=== PATIENT | male | born 1965 ===

== ENCOUNTER 2017-06-19 12:34 | Inpatient (IN) | payer OTHER ==
[~2017-06-19] VITALS: Ht 180.3 cm; Wt 90.7 kg
--- NOTE | 2017-06-19 13:22 | NUR ---
PRE ASSESSMENT Pt received in intake office. Pt states came from home. Pt alert and oriented to name, place, and time. Perrla. Skin warm and dry to touch. Respirations even unlabored. No hand tremors noted. Pt made aware of rules on the unit. VS wnl. Pt denies any allergies. No distress noted at this time.
[2017-06-19] MEDS ORDERED: MAG HYDROX/AL HYDROX/SIMETH 30 ML LIQUID UDC PO PRN (14:00)
[2017-06-19] MEDS ORDERED: CLONIDINE HCL 0.1 MG TABLET PO PRN (14:00)
[2017-06-19] MEDS ORDERED: LORAZEPAM 1 MG TABLET PO PRN ×2 (14:00)
[2017-06-19] MEDS ORDERED: ACETAMINOPHEN 325 MG TABLET PO PRN (14:00)
[2017-06-19] MEDS ORDERED: ONDANSETRON 4 MG/2 ML VIAL IM PRN (14:00)
[2017-06-19] MEDS ORDERED: LORAZEPAM 2 MG/1 ML VIAL IM PRN (14:00)
[2017-06-19] MEDS ORDERED: MIRALAX 17 GM POWD.PACK PO PRN (14:00)
[2017-06-19] MEDS ORDERED: HYDROXYZINE PAMOATE 25 MG CAPSULE PO PRN (14:00)
[2017-06-19] MEDS ORDERED: LOPERAMIDE HCL 2 MG CAPSULE PO PRN ×2 (14:00)
[2017-06-19] MEDS ORDERED: MAGNESIUM HYDROXIDE 30 ML LIQUID UDC PO PRN (14:00)
[2017-06-19] MEDS ORDERED: ONDANSETRON ODT 4 MG TAB.RAPDIS SL PRN (14:00)
[2017-06-19] MEDS ORDERED: DICYCLOMINE HCL 20 MG TABLET PO PRN (14:00)
[2017-06-19] MEDS ORDERED: IBUPROFEN 600 MG TABLET PO PRN (14:00)
--- NOTE | 2017-06-19 14:00 | NUR ---
ADMISSION Pt received in intake office. Pt states came from home. Pt states he is trying to stop drinking because it is taking control of his life. Pt admitted for etoh dependence. Pt alert and oriented to name, place, and time. Perrla. Skin warm and dry to touch. Respirations even unlabored. No hand tremors noted. Pt states feels anxious. VS wnl. Pt denies any allergies. Pt was seen by MD. Pt denies any seizure history. Pt states NKA. Oriented pt to unit and room. No distress noted at this time. substance hx - wine po 2 regular size bottles or 1 big bottle daily x2 weeks. total=35 years. Last use 06/17/17 and had 2 regular bottles - vodka po . Stated uses occasionally. Last drink was on 03/30/17 1 pint -beer po. Stated uses occasionally. Last drink was 06/18/17 and had 2 cans. medical hx pt denies any medical history tx hx adelante 10/2016 [facility] = does not remember the dates [facility] = does not remember the dates.
[2017-06-19] MEDS ORDERED: ESCI20TA PO (14:09)
[2017-06-19] MEDS ORDERED: THIAMINE HCL 200 MG/2 ML VIAL IM ONE (15:07)
[2017-06-19] MEDS: GABAPENTIN 300 MG CAPSULE PO SCH (15:13)
[2017-06-19 16:00] LABS: *AMPHETAMINE, URINE NEGATIVE (NEGATIVE); *BARBITURATE, URINE NEGATIVE (NEGATIVE); *CANNABINOID, URINE NEGATIVE (NEGATIVE); *COCCAINE, URINE NEGATIVE (NEGATIVE); *OPIATE, URINE NEGATIVE (NEGATIVE); *PHENCYCLIDINE SCREEN,URINE NEGATIVE (NEGATIVE)
--- NOTE | 2017-06-19 17:02 | NUR ---
PRN Pt with bp 161/101. Catapres po prn per MD order given and tolerated well.
[2017-06-19 17:47] LABS: BASOPHILS % (AUTO) 0.4 % (0.0-2.0); EOSINOPHILS # (AUTO) 0.1 K/uL (0.0-0.7); HEMATOCRIT 43.8 % (40-50); HEMOGLOBIN 14.8 G/DL (14.0-18.0); LYMPHOCYTES # (AUTO) 1.7 K/UL (0.8-4.8); LYMPHOCYTES % (AUTO) 20.9 % (20.5-51.5); MEAN CORPUSCULAR HEMOGLOBIN 32.3 UUG (27.0-31.0); MEAN CORPUSCULAR HGB CONC 34 g/dL (32.0-37.0); MEAN CORPUSCULAR VOLUME 95.7 FL (82.0-92.0); MONOCYTES # (AUTO) 0.9 K/UL (0.1-1.30); NEUTROPHILS # (AUTO) 5.2 K/UL (1.8-8.9); NEUTROPHILS % (AUTO) 65.7 % (38.5-71.5); PLATELET COUNT (AUTO) 232 K/UL (150-450); RED BLOOD CELL COUNT(AUTO) 4.58 MIL/UL (4.7-6.1); WHITE BLOOD COUNT (AUTO) 7.9 K/UL (4.0-11.2)
[2017-06-19 17:57] LABS: ETHANOL < 3 MG/DL (0-0)
--- NOTE | 2017-06-19 18:02 | NUR ---
PRN EVAL ND=046/[id number].
[2017-06-19 18:11] LABS: ALANINE AMINOTRANSFERASE 44 U/L (16-63); ALKALINE PHOSPHATASE 61 U/L (50-136); AMYLASE 53 U/L (25-115); ASPARTATE AMINOTRANSFERASE 31 U/L (15-37); BILIRUBIN,TOTAL 0.6 mg/dL (0.2-1.0); CARBON DIOXIDE 30 mmol/L (21-32); CHLORIDE 99 mmol/L (98-107); CREATININE 1.2 mg/dL (0.6-1.3); GLUCOSE 111 mg/dL (74-106); LIPASE 124 U/L (73-393); MAGNESIUM 1.7 mg/dL (1.8-2.4); POTASSIUM 3.7 mmol/L (3.5-5.1); TOTAL PROTEIN, SERUM 7.7 g/dL (6.4-8.2); UREA NITROGEN, BLOOD 18 mg/dL (7-18)
--- NOTE | 2017-06-19 18:31 | NUR ---
END OF SHIFT Pt 51 y/o male admitted for etoh dependence. Pt alert and oriented to name, place, and time. Perrla. Skin warm and dry to touch. Respirations even and unlabored. Bilateral hand tremors noted slightly. Pt observed mostly isolative to room throughout the day. Pt was seen by MD today. pt medication compliant and tolerated well. No ASE noted. Bed on lowest position with side rails x2 up for safety. Call light within reach. No distress noted at this time.
--- NOTE | 2017-06-19 19:30 | NUR ---
Start of Shift Note: Endorsement received from AM nurse. Pt 51 y/o male admitted for Etoh dependence. Pt alert and oriented x 4. Perrla. Skin warm and dry to touch. Respirations even and unlabored. Patient in room resting with no physical or emotional complaints noted. Patient with mild anxiety but no other noted withdrawal symptoms art present time. Last CIWA 4. Patient to start on five day Ativan taper on 06-20-17. Bed on lowest position with side rails x2 up for safety.Patient denies seizure history or past medical history. Call light within reach. No distress noted at this time.
[2017-06-19 20:36] VITALS: BP 131/83
[2017-06-19] MEDS ORDERED: GABAPENTIN 300 MG CAPSULE PO SCH (21:00)
[2017-06-19] MEDS: diphenhydrAMINE 50 MG CAPSULE PO PRN (21:58)
--- NOTE | 2017-06-19 21:58 | NUR ---
PRN medication Patient with complaints of insomnia requested and given Benadryl 50 mg PO at 2158. Effect pending.
--- NOTE | 2017-06-19 23:00 | NUR ---
Reassessment of patient one hour after Benadryl 50 mg PO administered for insomnia with good effect noted. Patient with eyes closed resting comfortably in bed.
[2017-06-20] VITALS: BP 139/89
--- NOTE | 2017-06-20 04:08 | NUR ---
VItal SIgns refused/CIWA deferred Patient refused 0400 Vital signs stating he "really needs to sleep" CIWA deferred due to sleep. Respirations 16, breathing even and unlabored.
--- NOTE | 2017-06-20 06:57 | NUR ---
End of shift report: Patient is a 51 year old male admitted on 06-19-17 for alcohol detox. He will be started on a 5 day Ativan taper this AM. He is a full code, on a regular diet, and is on both fall and seizure precautions. (No past seizure history noted) Patients VS at 2000: BP 131/83, P 76, SPO2 96% R 18. CIWA 2. VS at 0000: BP 139/89, P 65, SPO2 97% on RA, R 16, CIWA 2. Patient refused 0400 Vital signs stating he "really needs to sleep" CIWA deferred due to sleep. Respirations 16, breathing even and unlabored. Benadryl was given at 2158 for insomnia with good effect. Safety measures in place. Patient with moderate anxiety. No noted tremors. Intake 855 ml output 3 voids. Slept total of 7 hours. Endorsement to AM shift.
--- NOTE | 2017-06-20 07:49 | NUR ---
START OF SHIFT Pt 51 y/o male admitted for etoh dependence. Pt received in room on bed with eyes closed resting, but easily arousable to name. Pt alert and oriented to name, place, and time. Perrla. Skin warm and dry to touch. Respirations even and unlabored. It was reported that pt slept 8 hours last night. Bed on lowest position with side rails x2 up for safety. Call light within reach. No distress noted at this time.
[2017-06-20 08:41] VITALS: BP 132/87
[2017-06-20] MEDS: LORAZEPAM 1 MG TABLET PO SCH ×4 (08:43→21:00)
[2017-06-20] MEDS: MULTIVITAMINS,THERAPEUTIC TABLET PO SCH (08:44)
[2017-06-20] MEDS: THIAMINE HCL 100 MG TABLET PO SCH (08:44)
[2017-06-20] MEDS: GABAPENTIN 300 MG CAPSULE PO SCH ×3 (08:44→21:00)
[2017-06-20] MEDS: FOLIC ACID 1 MG TABLET PO SCH (08:45)
[2017-06-20] MEDS ORDERED: TUBERCULIN,PURIF.PROT.DERIV. 5 TU/0.1 ML TEST ID ONE (09:00)
[2017-06-20] MEDS: DOCUSATE SODIUM 250 MG CAPSULE PO SCH (09:00)
[2017-06-20] MEDS ORDERED: 5 DAY TAPER OF LORAZEPAM -SERENITY PROTOCOL PO PRN (09:00)
[2017-06-20] MEDS ORDERED: Medication Not On Formulary EA (Escitalopram Oxalate (Lexapro) 20 MG) PO SCH (11:45)
[2017-06-20] MEDS: ESCITALOPRAM OXALATE 10 MG TABLET PO SCH (12:12)
[2017-06-20 13:00] VITALS: BP 121/81
[2017-06-20 16:00] VITALS: BP 150/87
[2017-06-20] MEDS ORDERED: MAGNESIUM OXIDE 400 MG TABLET PO ONE (17:00)
[2017-06-20 17:53] VITALS: BP 126/92
--- NOTE | 2017-06-20 18:38 | NUR ---
END OF SHIFT Pt 51 y/o male admitted for etoh dependence. Pt alert and oriented to name, place, and time. Perrla. Skin warm and dry to touch. Respirations even and unlabored. Bilateral hand tremors noted slightly. Pt observed mostly isolative to room throughout the day. Pt did not attend group activity. Pt was seen by MD today. Pt medication compliant and tolerated well. No ASE noted. Bed on lowest position with side rails x2 up for safety. Call light within reach. No distress noted at this time.
--- NOTE | 2017-06-20 19:40 | NUR ---
START OF SHIFT Received report from day shift nurse. Pt is lying in bed resting with eyes closed and is easily arousable. He is a 51 yo male admitted to [facility] on 06/19 for ETOH dependence. He is A&O and ambulatory. NKA, full code status and on a regular diet. He denies having any PMH. On admission he admitted to drinking wine 1500mL per day for two weeks. Pt started a 5 day Ativan taper today. He has moist skin. Ativan taper is working well to manage withdrawal symptoms. Fall and seizure precautions ordered. Bed is down with call light in reach.
[2017-06-20 20:00] VITALS: BP 119/77
--- NOTE | 2017-06-20 21:59 | NUR ---
2100 Medications held due to sleep Ativan taper and Gabapentin held at 2100 due to sleep.
[2017-06-21] VITALS: BP 125/81
[2017-06-21 04:00] VITALS: BP 123/80
--- NOTE | 2017-06-21 04:00 | NUR ---
0400 CIWA deferred CIWA ordered Q4HWA. Pt is lying in bed resting with eyes closed. Respirations even and unlabored. Safety measures in place.
[2017-06-21 06:08] LABS: HEPATITIS B SURFACE AG Negative (Negative)
--- NOTE | 2017-06-21 07:20 | NUR ---
END OF SHIFT Received report from day shift nurse. Pt is lying in bed resting. He is a 51 yo male admitted to [facility] on 06/19 for ETOH dependence. He is A&O and ambulatory. NKA, full code status and on a regular diet. He denies having any PMH. On admission he admitted to drinking wine 1500mL per day for two weeks. Pt started a 5 day Ativan taper on 06/20 which is working well to manage symptoms. Last CIWA was 2. He slept throughout the shift for a total of 11 hours. 2100 medications including Ativan taper held due to sleep. Fall and seizure precautions ordered. Bed is down with call light in reach.
--- NOTE | 2017-06-21 07:42 | NUR ---
START OF SHIFT Pt 51 y/o male admitted for etoh dependence. Pt received in room on bed with eyes closed resting, but easily arousable to name. Pt alert and oriented to name, place, and time. Perrla. Skin warm and dry to touch. Respirations even and unlabored. It was reported that pt slept 11 hours last night. Bed on lowest position with side rails x2 up for safety. Call light within reach. No distress noted at this time.
[2017-06-21 08:00] VITALS: BP 124/88
[2017-06-21] MEDS: FOLIC ACID 1 MG TABLET PO SCH (08:50)
[2017-06-21] MEDS: MULTIVITAMINS,THERAPEUTIC TABLET PO SCH (08:51)
[2017-06-21] MEDS: GABAPENTIN 300 MG CAPSULE PO SCH ×3 (08:51→20:57)
[2017-06-21] MEDS: THIAMINE HCL 100 MG TABLET PO SCH (08:51)
[2017-06-21] MEDS: ESCITALOPRAM OXALATE 10 MG TABLET PO SCH (08:57)
[2017-06-21] MEDS: LORAZEPAM 1 MG TABLET PO SCH ×3 (08:57→20:57)
[2017-06-21] MEDS: DOCUSATE SODIUM 250 MG CAPSULE PO SCH (09:00)
--- NOTE | 2017-06-21 09:05 | NUR ---
PRN Pt with c/o joint pain 05/05. Motrin po prn per MD order given and tolerated well.
[2017-06-21 09:34] LABS: CREATININE 1.1 mg/dL (0.6-1.3); MAGNESIUM 1.9 mg/dL (1.8-2.4); POTASSIUM 4.6 mmol/L (3.5-5.1)
--- NOTE | 2017-06-21 10:05 | NUR ---
SIMONE CRAVEN Pt observed on bed in room with eyes closed resting, but easily arousable to name. No distress noted at this time.
--- NOTE | 2017-06-21 10:58 | NUR ---
Therapist prompted client about group times. Client stated he would try to attend groups today.
[2017-06-21 12:32] VITALS: BP 138/88
[2017-06-21 17:35] VITALS: BP 136/87
--- NOTE | 2017-06-21 19:55 | NUR ---
START OF SHIFT Received report from day shift nurse. Pt is lying in bed resting and is easily arousable. He is a 51 yo male admitted to [facility] on 06/19 for ETOH dependence. He is A&O and ambulatory. NKA, full code status and on a regular diet. He denies having any PMH. On admission he admitted to drinking wine 1500mL per day for two weeks. Pt started a 5 day Ativan taper on 06/20. His skin is moist. Ativan taper continues to work well to manage withdrawal symptoms. He states he is glad to be getting rest. Fall and seizure precautions ordered. Bed is down with call light in reach.
[2017-06-21 20:00] VITALS: BP 134/84
[2017-06-22] VITALS: BP 124/86
[2017-06-22] MEDS: diphenhydrAMINE 50 MG CAPSULE PO PRN ×2 (00:25→21:54)
--- NOTE | 2017-06-22 00:26 | NUR ---
PRN Benadryl Pt c/o restlessness and inability to sleep. PRN Benadryl administered.
--- NOTE | 2017-06-22 01:36 | NUR ---
PRN Benadryl reassessment PRN Benadryl effective. Pt is lying in bed resting with eyes closed. Respirations even and unlabored. Safety measures in place.
--- NOTE | 2017-06-22 04:00 | NUR ---
0400 Vitals refused/CIWA deferred Pt refused to be woken for 0400 vitals. He is lying in bed resting with eyes closed. Respirations even and unlabored. CIWA ordered Q4HWA. Safety measures in place.
--- NOTE | 2017-06-22 07:05 | NUR ---
END OF SHIFT Report provided to day shift nurse. Pt is lying in bed resting. He is a 51 yo male admitted to [facility] on 06/19 for ETOH dependence. He is A&O and ambulatory. NKA, full code status and on a regular diet. He denies having any PMH. On admission he admitted to drinking wine 1500mL per day for two weeks. Pt started a 5 day Ativan taper on 06/20. He is compliant with treatment. Pt was having difficulty sleeping. PRN Benadryl administered. Last CIWA was 3. He drank 750mL and slept for 7 hours. Fall and seizure precautions ordered. Bed is down with call light in reach.
[2017-06-22 08:00] VITALS: BP 136/96
--- NOTE | 2017-06-22 08:00 | NUR ---
START OF SHIFT NOTE Received report from night nurse, 51 year old male admitted to [facility] for ETOH dependence. Pt denies having any PMH. Pt reported drinking wine 1500mL per day for two weeks. Pt cont on 5 day Ativan taper. Per endorsement pt was given PRN medication effective per night nurse, Last CIWA was 3, slept for 7 hours. Patient received in room, alert and oriented x4, educated regarding plan of care for the day and medication regimen with good verbal understanding. Will continue to monitor.
[2017-06-22] MEDS: MULTIVITAMINS,THERAPEUTIC TABLET PO SCH (08:43)
[2017-06-22] MEDS: GABAPENTIN 300 MG CAPSULE PO SCH ×3 (08:43→21:00)
[2017-06-22] MEDS: DOCUSATE SODIUM 250 MG CAPSULE PO SCH (08:43)
[2017-06-22] MEDS: THIAMINE HCL 100 MG TABLET PO SCH (08:43)
[2017-06-22] MEDS: ESCITALOPRAM OXALATE 10 MG TABLET PO SCH (08:43)
[2017-06-22] MEDS: LORAZEPAM 1 MG TABLET PO SCH ×4 (08:43→21:00)
[2017-06-22] MEDS: FOLIC ACID 1 MG TABLET PO SCH (08:43)
[2017-06-22 12:00] VITALS: BP 128/90
[2017-06-22 16:00] VITALS: BP 141/97
--- NOTE | 2017-06-22 19:13 | NUR ---
END OF SHIFT NOTE Pt cont with 5 day Ativan taper tolerating well. No PRN was given during day shift. Pt rested most of the day in his room. Pt did not attend any groups or activities. Encouraged Po fluids as tolerated. Pt remained compliant with plan of care. All safety measures in place, Call light within reach. P endorsed to night nurse in stable condition.
--- NOTE | 2017-06-22 19:45 | NUR ---
START OF SHIFT Received report from day shift nurse. Pt is lying in bed watching TV. He is a 51 yo male admitted to [facility] on 06/19 for ETOH dependence. He is A&O and ambulatory. NKA, full code status and on a regular diet. He denies having any PMH. On admission he admitted to drinking wine 1500mL per day for two weeks. Pt started a 5 day Ativan taper on 06/20. He is observed with flushed face and skin feels moist. Fall and seizure precautions ordered. Bed is down with call light in reach.
[2017-06-22 20:00] VITALS: BP 142/87
[2017-06-22 21:52] VITALS: BP 133/84
--- NOTE | 2017-06-22 21:55 | NUR ---
PRN Benadryl Pt c/o inability to sleep. PRN Benadryl administered.
--- NOTE | 2017-06-22 22:55 | NUR ---
PRN Benadryl reassessment PRN Benadryl effective. Pt is lying in bed resting with eyes closed. Respirations even and unlabored. Safety measures in place.
--- NOTE | 2017-06-23 | NUR ---
0000 Vitals refused/CIWA deferred Pt refused to be woken for 0000 vitals. He is lying in bed resting with eyes closed. Respirations even and unlabored. CIWA ordered Q4HWA. Safety measures in place.
--- NOTE | 2017-06-23 07:16 | NUR ---
END OF SHIFT Report provided to day shift nurse. Pt is lying in bed resting. He is a 51 yo male admitted to [facility] on 06/19 for ETOH dependence. He is A&O and ambulatory. NKA, full code status and on a regular diet. He denies having any PMH. Upon admission he reported drinking wine 1500mL per day for two weeks. 5 day Ativan taper was started on 06/20. PRN Benadryl administered. Last CIWA was 2. He drank 855mL and slept for 7 hours. Fall and seizure precautions ordered. Bed is down with call light in reach.
--- NOTE | 2017-06-23 07:52 | NUR ---
START OF SHIFT NOTE Received report from night nurse, 51 year old male admitted to [facility] for ETOH dependence. Pt denies having any PMH. Pt reported drinking wine 1500mL per day for two weeks. Pt cont on 5 day Ativan taper. Per endorsement pt was given PRN Benadryl medication effective per night nurse, Last CIWA was 2, slept for 7 hours. Patient received in room, alert and oriented x4, educated regarding plan of care for the day and medication regimen with good verbal understanding. Will continue to monitor.
[2017-06-23 08:00] VITALS: BP 130/90
[2017-06-23] MEDS: ESCITALOPRAM OXALATE 10 MG TABLET PO SCH (08:33)
[2017-06-23] MEDS: GABAPENTIN 300 MG CAPSULE PO SCH ×2 (08:33→14:34)
[2017-06-23] MEDS: LORAZEPAM 1 MG TABLET PO SCH ×3 (08:33→20:56)
[2017-06-23] MEDS: FOLIC ACID 1 MG TABLET PO SCH (08:33)
[2017-06-23] MEDS: MULTIVITAMINS,THERAPEUTIC TABLET PO SCH (08:33)
[2017-06-23] MEDS: THIAMINE HCL 100 MG TABLET PO SCH (08:33)
[2017-06-23] MEDS: DOCUSATE SODIUM 250 MG CAPSULE PO SCH (08:34)
[2017-06-23 12:00] VITALS: BP 138/84
[2017-06-23 16:00] VITALS: BP 132/78
[2017-06-23] MEDS ORDERED: HYDROXYZINE PAMOATE 25 MG CAPSULE PO PRN (18:45)
--- NOTE | 2017-06-23 19:16 | NUR ---
END OF SHIFT NOTE Gave report to night nurse, 51 year old male admitted to [facility] for ETOH dependence. Pt cont on 5 day Ativan taper tolerating well. Pt did not receive any PRN during shift. Last CIWA-5. Pt encouraged to attend groups and activities. Encouraged Po fluids as tolerated. Pt remained compliant with plan of care. All safety measures in place,call light within reach. Pt endorsed to night nurse in stable condition.
--- NOTE | 2017-06-23 19:45 | NUR ---
Start of Shift Note: Pt 51 y/o male admitted for Etoh dependence. On 5 day Ativan taper. Pt is alert and oriented x 4. Perrla. Skin warm and dry to touch. Patient in room resting with no physical or emotional complaints noted. Patient with mild anxiety but no other noted withdrawal symptoms art present time. Last CIWA 5. Bed in lowest position with side rails x2 up for safety.Patient denies seizure history or past medical history. Call light within reach. No distress noted at this time. Endorsement received from AM nurse.
[2017-06-23 20:00] VITALS: BP 133/91
[2017-06-23] MEDS: GABAPENTIN 400 MG CAPSULE PO SCH (20:56)
[2017-06-23] MEDS: diphenhydrAMINE 50 MG CAPSULE PO PRN (20:59)
--- NOTE | 2017-06-23 21:00 | NUR ---
PRN medication Benadryl 50 mg PO administered at 2100 for reported insomnia. Effect pending.
--- NOTE | 2017-06-23 22:00 | NUR ---
Reassessment of patient Patient reassessed one hour after administration of Benadryl 50 mg PO. Patient resting comfortably in bed. Eyes closed. Patient breathing is regular, unlabored, and respirations 16.
--- NOTE | 2017-06-24 00:10 | NUR ---
0000 Vitals refused/CIWA deferred Pt refused vital signs at 0000. Stated he wanted to sleep. Patient resting comfortably in bed with eyes closed. Respirations even and unlabored. CIWA ordered Q4HWA. Safety measures in place.
--- NOTE | 2017-06-24 04:00 | NUR ---
0400 Vitals refused/CIWA deferred Pt refused vital signs at 0400. Stated he wanted to sleep. Patient resting comfortably in bed with eyes closed. Respirations 16 breathing even and unlabored. CIWA deferred, ordered Q4HWA. Safety measures in place.
--- NOTE | 2017-06-24 06:49 | NUR ---
ENd of SHift Note Patient is a 51 year old male admitted to [facility] on 06/19 for ETOH dependence. He has. NKA, is a full code and on a regular diet. He denies having any PMH. Upon admission he reported drinking wine 1500mL per day for two weeks. 5 day Ativan taper was started on 06/20. PRN Benadryl administered for insomnia with good effect noted. . Last CIWA was 3. His intake was 500 mL Output: 1 void and 0 BM noted. He slept for 6 hours. Fall and seizure precautions ordered. Bed is in lowest position, with call light in reach. Endorsement to AM nurse.
--- NOTE | 2017-06-24 07:09 | NUR ---
Start of Shift Endorsement received from nightshift nurse. Pt is a 51 y/o male admitted for alcohol dependence. Pt has been placed on a 5 day Ativan taper. Pt is tolerating the tape AEB CIWA 3 at 1999. Pt received PRN Benadryl. PT reports sleeping 8 hours. Pt reports feeling rested and denies any pain at this time. PT is alert and oriented x4. Pt is in STABLE condition at this time. Remains compliant with medication and diet regimen. All needs have been met, All safety measures in place per hospital policy. Bed in lowest position, side rails up x2, call-light within reach. Will continue to monitor
[2017-06-24 08:00] VITALS: BP 120/86
[2017-06-24] MEDS: ESCITALOPRAM OXALATE 10 MG TABLET PO SCH (08:41)
[2017-06-24] MEDS: THIAMINE HCL 100 MG TABLET PO SCH (08:41)
[2017-06-24] MEDS: MULTIVITAMINS,THERAPEUTIC TABLET PO SCH (08:41)
[2017-06-24] MEDS: GABAPENTIN 400 MG CAPSULE PO SCH ×3 (08:41→21:19)
[2017-06-24] MEDS: FOLIC ACID 1 MG TABLET PO SCH (08:41)
[2017-06-24] MEDS: LORAZEPAM 1 MG TABLET PO SCH ×2 (08:41→21:19)
[2017-06-24 12:00] VITALS: BP 143/94
[2017-06-24 16:00] VITALS: BP 125/72
--- NOTE | 2017-06-24 18:57 | NUR ---
End of Shift Endorsement given to nightshift nurse. Pt is a 51 y/o male admitted for alcohol dependence. Pt has been placed on a 5 day Ativan taper. Pt is tolerating the taper AEB CIWA 3 at 1600. Pt did not receive any PRN medications. PT reports readiness for sobriety. Educated pt on S/E of alcohol dependence and withdrawal. Encouraged pt to participate in groups and activities. PT participated in groups but did not participate in activities. Reporting that he prefers to spend time in his room. Intake: 2000ml, Void x4, BM x2. PT is alert and oriented x4. Pt is in STABLE condition at this time. Remains compliant with medication and diet regimen. All needs have been met, All safety measures in place per hospital policy. Bed in lowest position, side rails up x2, call-light within reach. Will continue to monitor
--- NOTE | 2017-06-24 19:15 | NUR ---
Start of Shift Note: Patient is a 51 y/o male admitted on 06/19/17 for ETOH dependence. Patient denies any past medical history. No seizure history noted. Fall & Seizure precaution noted. Patient is on a regular diet with no known food and drug allergies noted. Full Code status. Skin noted to be intact. Patient is on a 5-day Ativan taper and tolerating well. Last CIWA is 3. No PRN medications given during day shift. Patient is alert & oriented x4. No shortness of breath noted. Respiration even & unlabored. Abdomen soft & non-distended. No nausea/vomiting noted. Patient denies any pain/discomfort. No hand tremors noted. Patient denies hallucinations. Safety precautions are in place. Bed locked in lowest position. Both side rails up. Call light within pts reach. Will continue to monitor patient.
[2017-06-24 20:00] VITALS: BP 132/90
[2017-06-24] MEDS: diphenhydrAMINE 50 MG CAPSULE PO PRN (21:19)
--- NOTE | 2017-06-24 21:19 | NUR ---
PRN Benadryl Patient requested medication to help him sleep. PRN Benadryl administered as ordered. Will continue to monitor patient.
--- NOTE | 2017-06-25 | NUR ---
Vitals/Ciwa deferred Patient refused vitals at this time. Patient asleep in bed and appears comfortable. No s/s of distress noted. Unable to assess ciwa at this time. Will continue to monitor patient.
--- NOTE | 2017-06-25 07:01 | NUR ---
End of Shift Note: Patient had an uneventful night. Patient completed his Ativan taper during my shift and tolerated well. Last Ciwa is 1. Pt was given PRN Benadryl during my shift. Pt remained compliant with therapeutic plan. Patient is alert & oriented x4. Patient remained stable and vitals WNL. Pt still asleep at this time. Patient slept for a total of 6 hours. Pt consumed 1500ml of fluids. Voided 3x with no bowel movement. Alll needs attended & met. Safety precautions are observed. Will endorse pt to day shift nurse.
--- NOTE | 2017-06-25 07:05 | NUR ---
Start of Shift Endorsement received from nightshift nurse. Pt is a 51 y/o male admitted for alcohol dependence. Pt has been placed on a 5 day Ativan taper. Pt is tolerating the tape AEB CIWA 1 at 0400. Pt received PRN Benadryl. PT reports sleeping 6 hours. Pt will complete his taper today and will be scheduled to be discharged on 06/26/17. All discharge education will be provided today. PT is alert and oriented x4. Pt is in STABLE condition at this time. Remains compliant with medication and diet regimen. All needs have been met, All safety measures in place per hospital policy. Bed in lowest position, side rails up x2, call-light within reach. Will continue to monitor
[2017-06-25 08:00] VITALS: BP 132/89
[2017-06-25] MEDS: THIAMINE HCL 100 MG TABLET PO SCH (08:58)
[2017-06-25] MEDS: MULTIVITAMINS,THERAPEUTIC TABLET PO SCH (08:58)
[2017-06-25] MEDS: FOLIC ACID 1 MG TABLET PO SCH (08:58)
[2017-06-25] MEDS: ESCITALOPRAM OXALATE 10 MG TABLET PO SCH (08:58)
[2017-06-25] MEDS: GABAPENTIN 400 MG CAPSULE PO SCH ×3 (08:58→21:35)
[2017-06-25] MEDS: CHOLECALCIFEROL 1,000 UNIT TABLET PO SCH (08:58)
[2017-06-25 12:00] VITALS: BP 125/72
[2017-06-25 16:00] VITALS: BP 138/84
[2017-06-25] MEDS ORDERED: HYDR-3895 PO (18:36)
[2017-06-25] MEDS ORDERED: GABA-536 PO (18:36)
[2017-06-25] MEDS ORDERED: CLON0.1T14 PO (18:36)
[2017-06-25] MEDS ORDERED: DIPH50CA37 PO (18:36)
[2017-06-25] MEDS ORDERED: CHOL10002 PO (18:36)
--- NOTE | 2017-06-25 19:08 | NUR ---
End of Shift Endorsement given to nightshift nurse. Pt is a 51 y/o male admitted for alcohol dependence. Pt has been placed on a 5 day Ativan taper. Pt is tolerating the taper AEB CIWA 2 at 1600. Pt did not receive any PRN medications. Pt has completed the taper and has been scheduled to be discharged on 06/26/17. PT reports readiness for sobriety. Educated pt on S/E of alcohol dependence and withdrawal. Provided discharge education and all discharge documentation has been completed. Reporting that he prefers to spend time in his room. Intake: 3000ml, Void x6, BM x2. PT is alert and oriented x4. Pt is in STABLE condition at this time. Remains compliant with medication and diet regimen. All needs have been met, All safety measures in place per hospital policy. Bed in lowest position, side rails up x2, call-light within reach. Will continue to monitor
[2017-06-25 20:00] VITALS: BP 136/87
--- NOTE | 2017-06-25 20:00 | NUR ---
START OF SHIFT NOTE PATIENT IN ROOM, WATCHING TV. ALERT AND ORIENTED X 4. RESPIRATION EVEN AND UNLABORED. PATIENT REPORTS " A LITTLE BIT OF ANXIETY". DENIES ANY PAIN . NO N/V. RECEIVED REPORT FROM DAY SHIFT NURSE ,PATIENT COMPLETED 5 DAY ATIVAN, TOLERATED WELL FOR ETOH DEPENDENCE. NO ADVERSE REACTION. PATIENT IS MEDICALLY CLEARED TO BE DISCHARGE TOMORROW. PATIENT REPORTS NO SEIZURE HISTORY. ON FALL/SEIZURE PRECAUTION. SKIN INTACT. PATIENT DID NOT REQUIRE ANY PRN MEDICATION. LAST CIWA 1. PATIENT COMPLIANT WITH MEDICATION AND TREATMENT PLAN. SAFETY MEASURES IN PLACE. CALL LIGHT IN REACH. WILL CONTINUE TO MONITOR.
[2017-06-25] MEDS ORDERED: CLONIDINE HCL 0.1 MG TABLET PO SCH (21:00)
[2017-06-25] MEDS: diphenhydrAMINE 50 MG CAPSULE PO PRN (21:34)
--- NOTE | 2017-06-25 21:34 | NUR ---
PRN BENADRYL RE-ASSESSMENT PATIENT REQUESTS FOR SLEEP AID. PRN BENADRYL GIVEN. WILL MONITOR FOR EFFECTIVENESS
--- NOTE | 2017-06-25 23:00 | NUR ---
PRN BENADRYL RE-ASSESSMENT PATIENT IN BED WITH EYE CLOSED. RESPIRATION EVEN AND UNLABORED. SAFETY MEASURES IN PLACE. CALL LIGHT IN REACH. WILL CONTINUE TO MONITOR
--- NOTE | 2017-06-26 | NUR ---
CIWA/VS CIWA/DEFERRED. PATIENT REFUSED VS AT THIS TIME. PATIENT IN BED ASLEEP. CIWA UNABLE TO ASSESS. RESPIRATION EVEN AND UNLABORED. RR 15. SAFETY MEASURES IN PLACE. CALL LIGHT IN REACH. WILL CONTINUE TO MONITOR.
--- NOTE | 2017-06-26 04:00 | NUR ---
CIWA/VS CIWA/DEFERRED. PATIENT REFUSED TO WOKEN UP FOR VS. PATIENT IN BED ASLEEP. CIWA UNABLE TO ASSESS. RESPIRATION EVEN AND UNLABORED. RR 14. SAFETY MEASURES IN PLACE. CALL LIGHT IN REACH. WILL CONTINUE TO MONITOR.
--- NOTE | 2017-06-26 06:55 | NUR ---
END OF SHIFT NOTE PATIENT HAD UNEVENTFUL NIGHT . PATIENT REMAIN ALERT AND ORIENTED X 4. RESPIRATION EVEN AND UNLABORED. PATIENT REPORTS " A LITTLE BIT OF ANXIETY", DENIES ANY PAIN , NO N/V BEGINNING OF SHIFT. PATIENT COMPLETED 5 DAY ATIVAN, TOLERATED WELL FOR ETOH DEPENDENCE. NO ADVERSE REACTION. PATIENT IS MEDICALLY CLEARED TO BE DISCHARGE TODAY.. PATIENT REPORTS NO SEIZURE HISTORY. ON FALL/SEIZURE PRECAUTION. SKIN INTACT. PATIENT WAS GIVEN PRN BENADRYL FOR SLEEP AT 2134. PATIENT COMPLIANT WITH MEDICATION AND TREATMENT PLAN. REMAIN FREE OF INJURY. SAFETY MEASURES IN PLACE. CALL LIGHT IN REACH. WILL CONTINUE TO MONITOR. SLEPT 7 HOURS. FLUID INTAKE 1,355 ML. VOIDED X 2 . NO BM. LAST CIWA 1.
--- NOTE | 2017-06-26 07:30 | NUR ---
START OF SHIFT NOTE Patient is resting in bed this morning with respirations even and unlabored. Patient expresses feeling a little anxious this morning. He is schedule to be discharged this morning. Patient slept 7 hours last night per night nurse with last CIWA 1.Patient was given Benadryl last night for sleep. Patient completed a 5 day Ativan taper with no complications. All needs have been met and all safety measures in place. Will continue to monitor patient until discharged.
[2017-06-26 08:03] VITALS: BP 123/84
[2017-06-26] MEDS: GABAPENTIN 400 MG CAPSULE PO SCH (08:06)
[2017-06-26] MEDS: THIAMINE HCL 100 MG TABLET PO SCH (08:06)
[2017-06-26] MEDS: ESCITALOPRAM OXALATE 10 MG TABLET PO SCH (08:06)
[2017-06-26] MEDS: MULTIVITAMINS,THERAPEUTIC TABLET PO SCH (08:06)
[2017-06-26] MEDS: CHOLECALCIFEROL 1,000 UNIT TABLET PO SCH (08:06)
[2017-06-26] MEDS: FOLIC ACID 1 MG TABLET PO SCH (08:06)
--- NOTE | 2017-06-26 09:24 | NUR ---
DISCHARGE NOTE Patient is in stable condition. vital signs WNL. Patient is alert and oriented X4. Skin is intact. Patient denies any suicidal or homicidal ideations at this time. All discharge paperwork completed dated and signed. Patient was educated about discharge instructions, what to do after discharge, when to contact MD as well as s/s reportable to MD. Patient verbalized understanding. Patients last CIWA 2. Patient was discharged from [facility] on 06/26/17 at 0924. Patient left with all of his belongings and prescriptions. MD has been contacted and notified of patients discharge.
== END 2017-06-26 09:24 | disposition other institution (70) | DRG 895 ==
LOC: SRC 12:34
PROVIDERS: ADMIT Internal Medicine; ATTEND Internal Medicine
PROC: HZ2ZZZZ Detoxification Services for Substance Abuse Treatment (ICD-10-PCS; principal; 2017-06-19)
PROC: HZ31ZZZ Individual Counseling for Substance Abuse Treatment, Behavioral (ICD-10-PCS; 2017-06-21)
PROC: HZ41ZZZ Group Counseling for Substance Abuse Treatment, Behavioral (ICD-10-PCS; 2017-06-24)
DX: F10.230 Alcohol dependence with withdrawal, uncomplicated (principal); E87.3 Alkalosis; F33.1 Major depressive disorder, recurrent, moderate; E83.42 Hypomagnesemia; Z80.1 Family history of malignant neoplasm of trachea, bronchus and lung; Z80.3 Family history of malignant neoplasm of breast; Y90.0 Blood alcohol level of less than 20 mg/100 ml; Z81.1 Family history of alcohol abuse and dependence; Z81.8 Family history of other mental and behavioral disorders; E86.0 Dehydration; R79.89 Other specified abnormal findings of blood chemistry; E55.9 Vitamin D deficiency, unspecified; R73.9 Hyperglycemia, unspecified; Z79.899 Other long term (current) drug therapy
CPT/HCPCS: 36415; 70030-TC; 80307; 83690; 83735; 85025; 86592; 86705; 86803; 87340; 87806; G0480; Q0163